=== PATIENT | male | born 1945 ===

== ENCOUNTER → 2021-06-19 10:15 | Outpatient (BNVA) | payer OTHER, SELFPAY | PROVIDERS: PCP Family Medicine; Visit Provider Nurse Practitioner Family | DX: G20 Parkinson's disease (principal); F02.80 Dementia in other diseases classified elsewhere, unspecified severity, without behavioral disturbance, psychotic disturbance, mood disturbance, and anxiety; R44.3 Hallucinations, unspecified; K59.00 Constipation, unspecified | CPT/HCPCS: 99212 ==

== ENCOUNTER → 2021-09-24 08:19 | Outpatient (BNVA) | payer OTHER, SELFPAY | PROVIDERS: PCP Family Medicine; Visit Provider Nurse Practitioner Family | DX: G20 Parkinson's disease (principal); F02.80 Dementia in other diseases classified elsewhere, unspecified severity, without behavioral disturbance, psychotic disturbance, mood disturbance, and anxiety; H53.2 Diplopia; R44.3 Hallucinations, unspecified | CPT/HCPCS: 99212 ==

== ENCOUNTER → 2021-12-31 10:12 | Outpatient (BNVA) | payer OTHER, SELFPAY | PROVIDERS: PCP Family Medicine; Visit Provider Nurse Practitioner Family | DX: H53.2 Diplopia (principal); G20 Parkinson's disease; F02.80 Dementia in other diseases classified elsewhere, unspecified severity, without behavioral disturbance, psychotic disturbance, mood disturbance, and anxiety; R44.3 Hallucinations, unspecified | CPT/HCPCS: 99212 ==

== ENCOUNTER → 2022-02-25 08:48 | Outpatient (BNVA) | payer OTHER, SELFPAY | PROVIDERS: PCP Family Medicine; Visit Provider Nurse Practitioner Family | DX: G20 Parkinson's disease (principal); R44.3 Hallucinations, unspecified; F02.80 Dementia in other diseases classified elsewhere, unspecified severity, without behavioral disturbance, psychotic disturbance, mood disturbance, and anxiety | CPT/HCPCS: 99212 ==

== ENCOUNTER → 2022-05-28 11:17 | Outpatient (BNVA) | payer OTHER, SELFPAY | PROVIDERS: PCP Family Medicine; Visit Provider Nurse Practitioner Family | DX: G20 Parkinson's disease (principal); F02.80 Dementia in other diseases classified elsewhere, unspecified severity, without behavioral disturbance, psychotic disturbance, mood disturbance, and anxiety; R44.3 Hallucinations, unspecified; K59.00 Constipation, unspecified; Z86.73 Personal history of transient ischemic attack (TIA), and cerebral infarction without residual deficits | CPT/HCPCS: 99212 ==

== ENCOUNTER → 2022-08-13 10:53 | Outpatient (BNVA) | payer OTHER, SELFPAY | PROVIDERS: PCP Family Medicine; Visit Provider Nurse Practitioner Family | DX: G20 Parkinson's disease (principal); K59.00 Constipation, unspecified | CPT/HCPCS: 99212 ==

== ENCOUNTER 2022-12-15 10:44 | Outpatient (AMB) | payer OTHER, SELFPAY ==
--- NOTE | 2022-12-15 10:44 | A.OFFVIS_ITS ---
Intake Intake Visit Reasons: 4m follow up parkinson's Intake Note: Patient has appointment for follow up parkinsons Allergies acetaminophen [From Percocet] Allergy (Mild, Verified 12/15/22 10:45) unknown atorvastatin [From Lipitor] Allergy (Mild, Verified 12/15/22 10:45) unknown oxycodone [From Percocet] Allergy (Mild, Verified 12/15/22 10:45) unknown Medication List - Last Reconciled 12/15/22 by FAMILIA Herman acetaminophen 500 mg PO DAILY albuterol sulfate 90 mcg/actuation (Ventolin HFA) 0 mcg inhalation budesonide 0.25 mg inhalation BID diclofenac sodium 1% grams topical BID diclofenac sodium 75 mg PO BID docusate sodium 100 mg PO BID famotidine 40 mg PO BID fluticasone propionate 50 mcg/actuation sprays intranasal furosemide 80 mg PO DAILY hydrocortisone 2.5% (Proctozone-HC) MI lisinopril 20 mg PO DAILY mirtazapine 30 mg PO BEDTIME olanzapine 5 mg PO BEDTIME polyethylene glycol 3350 8.5 - 17 grams PO DAILY 30 days pravastatin 80 mg PO DAILY propranolol 10 mg PO DAILY rivastigmine 9.5 mg transdermal DAILY sennosides (Natural Senna Laxative) 8.6 mg PO DAILY tamsulosin 0.4 mg PO DAILY torsemide 20 mg PO DAILY HPI HPI Comments History of Present Illness Details 77 -yr-old male presents for f/u visit, accompanied by his . Pt denies any significant interval medical history changes. Pt's current PD medication regimen: Selegiline 5mg bid ADL's: Needs assist Swallowing: No issues Drooling: No Orthostatic lightheadedness: denies Constipation: At times, responds to his usual bowel regimen- Miralax and prunes Freezing: At times. Stiffness: Stable Tremor: stable Falls: One recent fall- no injuries Hallucinations: He may see people or a door- stable Memory: STM difficulties Sleep: Not much, but can take catnaps ? [facility] Medical History Stroke Surgical History H/O knee surgery H/O neck surgery H/O wrist surgery Family History Mother Breast cancer Father Prostate cancer HTN (hypertension) Heart disease Social History Alcohol intake: never Patient Tobacco Use Status: Never used Tobacco Review of Systems Const All systems reviewed & are unremarkable except as noted in HPI and below Physical Exam Const General: cooperative and no acute distress Resp Effort & Inspection: normal respiratory effort and able to speak in complete sentences Neuro Other: Voice: Soft Psych: Pleasant Assessment & Plan Assessment & Plan (1) Parkinson's disease: Code(s): G20 - Parkinson's disease (2) Hallucinations: Code(s): R44.3 - Hallucinations, unspecified (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 Continue Miralax, senna, prunes. Olanzapine 5mg qd- per Parag Bhatia. Nuplazid, quetiapine, trazodone- not tolerated. Future considerations: Rytary, Clozaril- last option d/t lab work required for this. f/u in 3-4 months or sooner prn new/worsening s/s. Medications: Refilled selegiline HCl administer with breakfast and lunch 5 mg PO BID 60 tabs 3RF 30 days Telehealth Telehealth Location of provider rendering services: practice address Location of patient: address on file Patient Identification confirmed using: Name, : Yes Telehealth method: voice only Patient verbally consented to treatment: Yes Patient verbally consented to billing insurance company: Yes Patient informed of any privacy concerns related to visit: Yes Minutes spent on Phone/Video with Pt.: 5 Coding Level of Care Code Tele Est Pt Level 4 (23475) Diagnoses Parkinson's disease G20 Hallucinations R44.3 Dementia associated with Parkinson's disease G20; F02.80
== END 2022-12-15 11:37 | disposition home or self-care (01) ==
LOC: HO.HSMS 10:44
PROVIDERS: PCP Family Medicine; Visit Provider Nurse Practitioner Family
DX: G20 Parkinson's disease (principal); R44.3 Hallucinations, unspecified; F02.80 Dementia in other diseases classified elsewhere, unspecified severity, without behavioral disturbance, psychotic disturbance, mood disturbance, and anxiety
CPT/HCPCS: 99441

== ENCOUNTER → 2022-12-15 10:44 | Outpatient (BNVA) | payer OTHER, SELFPAY | PROVIDERS: PCP Family Medicine; Visit Provider Nurse Practitioner Family ==

== ENCOUNTER 2023-05-06 09:38 | Outpatient (AMB) | payer OTHER, SELFPAY ==
--- NOTE | 2023-05-06 09:54 | MHC.OFFVIS ---
Intake Vital Signs 05/06/23 09:55 Height 5 ft 6 in Pulse 86 Pulse Source Pulse Oximeter Pulse Oximetry (%) 96 Oxygen Delivery Method Room Air Intake Visit Reasons: follow up-Confirmed Intake Note: Patient presents for follow up. Allergies acetaminophen [From Percocet] Allergy (Mild, Verified 05/06/23 09:58) unknown atorvastatin [From Lipitor] Allergy (Mild, Verified 05/06/23 09:58) unknown oxycodone [From Percocet] Allergy (Mild, Verified 05/06/23 09:58) unknown Medication List - Last Reconciled 05/06/23 by FAMILIA Herman acetaminophen 500 mg PO DAILY albuterol sulfate 90 mcg/actuation (Ventolin HFA) 0 mcg inhalation budesonide 0.25 mg inhalation BID diclofenac sodium 1% grams topical BID diclofenac sodium 75 mg PO BID docusate sodium 100 mg PO BID famotidine 40 mg PO BID fluticasone propionate 50 mcg/actuation sprays intranasal furosemide 80 mg PO DAILY hydrocortisone 2.5% (Proctozone-HC) MI lisinopril 20 mg PO DAILY mirtazapine 30 mg PO BEDTIME olanzapine 5 mg PO BEDTIME polyethylene glycol 3350 8.5 - 17 grams PO DAILY 30 days pravastatin 80 mg PO DAILY propranolol 10 mg PO DAILY rivastigmine 9.5 mg transdermal DAILY selegiline HCl 5 mg PO BID 30 days sennosides (Natural Senna Laxative) 8.6 mg PO DAILY tamsulosin 0.4 mg PO DAILY torsemide 20 mg PO DAILY HPI HPI Comments History of Present Illness Details 78-yr-old male presents for f/u visit, accompanied by his . Pt denies any significant interval medical history changes. Pt's current PD medication regimen: Selegeline 5mg bid Do medication effects last between doses: Pt does not notice ADL's: Needs assist. Needs assit to eat d/t his tremor. Swallowing: No issues Drooling: No Orthostatic lightheadedness: denies Constipation: At times, responds to his usual bowel regimen- Miralax and prunes Freezing: At times. Stiffness: General stiffness, more so in his legs. Tremor: stable Falls: None Hallucinations: He may see people or a door- stable, not bothersome. Memory: STM difficulties Mood: Better. states he is more calm since his psych provider added a new anxiety med- they are unsure what med was added/ Sleep: Sleeping better Exercise: None. Pt states he cannot exercise as he eaisly becomes tired after even very short walks w/walker- say from the living room to the bathroom. [facility] Medical History (Updated 05/06/23 @ 10:49 by FAMILIA Herman) Parkinson's disease Stroke Surgical History H/O knee surgery H/O wrist surgery H/O neck surgery Family History Mother Breast cancer Father Prostate cancer HTN (hypertension) Heart disease Social History Alcohol intake: never Patient Tobacco Use Status: Never used Tobacco Review of Systems Const All systems reviewed & are unremarkable except as noted in HPI and below Physical Exam Vital Signs: Last Vital Signs Pulse 86 05/06/23 09:55 Pulse Ox 96 05/06/23 09:55 Oxygen Delivery Method Room Air 05/06/23 09:55 Const General: cooperative and no acute distress Resp Effort & Inspection: normal respiratory effort and able to speak in complete sentences Neuro Other: General: Alert, oriented to person. States the city is [place]. Some STM lapses. Expression: Decreased facial expression Voice: Soft Tremor: RUE rest tremor Tone: BUE rigidity Dyskinesia: None FFM: Bradykinesia Foot taps: Bradykinesia Gait: Sitting upright in w/c today. Psych: Pleasant affect Assessment & Plan Assessment & Plan (1) Parkinson's disease without dyskinesia: Code(s): G20.A1 - Parkinson's disease without dyskinesia, without mention of fluctuations (2) Tremor: Code(s): R25.1 - Tremor, unspecified (3) Rigidity: Code(s): R29.898 - Other symptoms and signs involving the musculoskeletal system (4) Activity intolerance: Code(s): R68.89 - Other general symptoms and signs (5) Gait difficulty: Code(s): R26.9 - Unspecified abnormalities of gait and mobility (6) Bradykinesia: Code(s): R25.8 - Other abnormal involuntary movements Plan Home PT and OT for home safety, gait, tremor, rigidity, activity intolerance, ADL eval & tx. Continue Selegeline 5mg bid. Continue Miralax, senna, prunes. Psychiatric med tx per Parag Bhatia- will request updated list. Previous med trials- CD-LD- caused hallucinations. Nuplazid, quetiapine, trazodone- not tolerated. Future considerations: Rytary, Clozaril- last option d/t lab work required for this. f/u in 4 months or sooner prn new/worsening s/s. Orders: [facility]errals [facility] Referral G20.A1 - Parkinson's disease without dyskinesia, without mention of fluctuations, R25.1 - Tremor, unspecified, R25.8 - Other abnormal involuntary movements, R26.9 - Unspecified abnormalities of gait and mobility, R29.898 - Other symptoms and signs involving the musculoskeletal system, R68.89 - Other general symptoms and signs Coding Level of Care Code Est Pt Level 4 (03659) Diagnoses Parkinson's disease without dyskinesia G20.A1 Tremor R25.1 Rigidity R29.898 Activity intolerance R68.89 Gait difficulty R26.9 Bradykinesia R25.8
[2023-05-06 09:55] VITALS: PULSE 86; O2SAT 96
== END 2023-05-06 10:31 | disposition home or self-care (01) ==
PROVIDERS: PCP Family Medicine; Visit Provider Nurse Practitioner Family
DX: G20.A1 Parkinson's disease without dyskinesia, without mention of fluctuations (principal); R25.1 Tremor, unspecified; R29.898 Other symptoms and signs involving the musculoskeletal system; R68.89 Other general symptoms and signs; R26.9 Unspecified abnormalities of gait and mobility; R25.8 Other abnormal involuntary movements
CPT/HCPCS: 99214

== ENCOUNTER → 2023-05-06 09:38 | Outpatient (BNVA) | payer OTHER, SELFPAY | PROVIDERS: PCP Family Medicine; Visit Provider Nurse Practitioner Family | DX: G20.A1 Parkinson's disease without dyskinesia, without mention of fluctuations (principal); R25.1 Tremor, unspecified; R29.898 Other symptoms and signs involving the musculoskeletal system; R68.89 Other general symptoms and signs; R26.9 Unspecified abnormalities of gait and mobility; R25.8 Other abnormal involuntary movements | CPT/HCPCS: 99212 ==